=== PATIENT | female | born 1970 | race Caucasian/White ===

== ENCOUNTER 2017-03-23 02:44 | Emergency (ER) | payer SELFPAY ==
[2017-03-23 03:12] VITALS: TEMP 98.2
[2017-03-23] MEDS ORDERED: PROMETHAZINE HCL INJ 25 MG/ML VIAL ONE (03:23)
[2017-03-23] MEDS ORDERED: SODIUM CHLORIDE 0.9% 50ML 50 ML ONE (03:23)
[2017-03-23] MEDS: PROMETHAZINE HCL INJ 25 MG in SODIUM CHLORIDE 0.9% 50ML 50 ML IVPB ONE (03:26)
[2017-03-23] MEDS: SODIUM CHLORIDE 0.9% 1000ML 1,000 ML IVS ONE (03:26)
[2017-03-23] MEDS: MECLIZINE HCL 12.5 MG TAB PO ONE (03:26)
[2017-03-23 04:56] VITALS: O2SAT 98
--- NOTE | 2017-03-23 04:56 | ED.PDOC ---
History of Present Illness - General Chief Complaint: GI Problem Stated Complaint: dizziness, nausea Time Seen by Provider: 03/23/17 02:46 Source: patient Exam Limitations: no limitations - History of Present Illness Initial Comments: the patient is a 46-year-old female presenting to the emergency room secondary to 3 days of intermittent vertigo with dizziness and associated nausea and vomiting. No fever. No blood in the vomitus. No diarrhea. No syncope or near syncope. She does believe that it is worse when she looks up or looks to the right. She has had multiple episodes like this in the past and did have a negative head CT in 2015. Timing/Duration: unsure Severity: moderate Improving Factors: nothing Worsening Factors: nothing Associated Symptoms: denies symptoms Allergies/Adverse Reactions: Allergies NO KNOWN ALLERGY Allergy (Verified 03/23/17 03:05) Home Medications: Ambulatory Orders Carbamazepine [Tegretol] 200 mg PO 03/23/17 Levothyroxine Sodium [Synthroid] 25 mcg PO 03/23/17 Meclizine HCl 25 mg PO Q6H PRN #20 tab 03/23/17 Promethazine HCl 25 mg PO Q6H PRN #10 tab 03/23/17 Review of Systems - Review of Systems Constitutional: States: malaise EENTM: States: no symptoms reported Respiratory: States: no symptoms reported Cardiology: States: no symptoms reported Gastrointestinal/Abdominal: States: see HPI Genitourinary: States: no symptoms reported Musculoskeletal: States: no symptoms reported Skin: States: no symptoms reported Neurological: States: anxiety Endocrine: States: no symptoms reported All other Systems: No Change from Baseline Past Medical History (General) - Patient Medical History Hx Seizures: No Hx Stroke: No Hx Dementia: No Hx Asthma: Yes Hx of COPD: No Hx Cardiac Disorders: No Hx Congestive Heart Failure: Yes Hx Pacemaker: No Hx Hypertension: No Hx Thyroid Disease: No Hx Diabetes: No Hx Gastroesophageal Reflux: Yes Hx Renal Disease: No Hx of HIV: No Hx MRSA: No Surgical History: no surgical history - Vaccination History Hx Tetanus, Diphtheria Vaccination: No Hx Influenza Vaccination: No Hx Pneumococcal Vaccination: No Immunizations Up to Date: No - Social History Hx Tobacco Use: No Hx Chewing Tobacco Use: No Hx Alcohol Use: Yes - occ Hx Substance Use: No Hx Substance Use Treatment: No Hx Depression: Yes Hx Physical Abuse: No Hx Emotional Abuse: No Hx Suspected Abuse: No - Female History Patient : No Family Medical History - Family History Maternal Family History: No Known Living Status: Unknown Hx Family Hypertension: Yes Hx Cardiac Disease: Yes Hx Family Diabetes: Yes Physical Exam - Physical Exam General Appearance: Alert, Anxious Eye Exam: bilateral normal Ears, Nose, Throat: hearing grossly normal, normal pharynx Neck: non-tender, full range of motion Respiratory: chest non-tender, lungs clear, normal breath sounds, no respiratory distress Cardiovascular/Chest: regular rate, rhythm, no edema Peripheral Pulses: radial,right: 2+, radial,left: 2+, dorsalis pedis,right: 2+, dorsalis pedis,left: 2+ Gastrointestinal/Abdominal: non tender, soft Rectal Exam: deferred Neurologic: no motor/sensory deficits, alert, oriented x 3 Skin Exam: normal color Comments: Vital Signs - 24 hr 03/23/17 03:08 Temperature 98.2 F Pulse Rate [ 69 left] Respiratory 18 Rate Blood Pressure 116/74 [left] O2 Sat by Pulse 97 Oximetry no abnormal nystagmus detected. No vertical skew deviation. His impulse test indicates slight deficit when rapid turn to the right. Progress - Progress Progress: 03/23/17 04:56 the patient's a 46-year-old female presenting with what appears to be an acute vestibular syndrome. The patient will be written for meclizine and Phenergan for as needed use. She needs to keep herself well-hydrated. She needs to follow-up with her primary care doctor early this week. ER warnings were given for any worsening. - EKG/XRAY/CT CT Ordered: No Departure - Departure Clinical Impression: Vestibular disorder Qualifiers: Laterality: right Qualified Code(s): H81.91 - Unspecified disorder of vestibular function, right ear Disposition: Discharge to Home or Self Care Condition: Fair Departure Forms: ED Discharge - Pt. Copy, Patient Portal Self Enrollment Instructions: DI for Vertigo Diet: bland diet Activity: increase activity as tolerated Prescriptions: Meclizine HCl 25 mg PO Q6H PRN #20 tab PRN Reason: Dizziness Promethazine HCl 25 mg PO Q6H PRN #10 tab PRN Reason: Vomiting Home Medications: Ambulatory Orders Carbamazepine [Tegretol] 200 mg PO 03/23/17 Levothyroxine Sodium [Synthroid] 25 mcg PO 03/23/17 Meclizine HCl 25 mg PO Q6H PRN #20 tab 03/23/17 Promethazine HCl 25 mg PO Q6H PRN #10 tab 03/23/17 Additional Instructions: the patient's a 46-year-old female presenting with what appears to be an acute vestibular syndrome. The patient will be written for meclizine and Phenergan for as needed use. She needs to keep herself well-hydrated. She needs to follow-up with her primary care doctor early this week. ER warnings were given for any worsening.
[2017-03-23 05:12] VITALS: BP 155/89
== END 2017-03-23 05:07 | disposition home or self-care (01) ==
LOC: ER 02:44
DX: H81.91 Unspecified disorder of vestibular function, right ear (principal); I50.9 Heart failure, unspecified; K21.9 Gastro-esophageal reflux disease without esophagitis; J45.909 Unspecified asthma, uncomplicated; Z79.899 Other long term (current) drug therapy
CPT/HCPCS: A4216; J2550; J7030

== ENCOUNTER → 2017-07-23 | Outpatient (CLI) | payer OTHER ==
--- NOTE | 2017-07-23 12:47 | MAM ---
EXAM DESCRIPTION: 3D Diagnostic, Bilateral: Digital Mammography CLINICAL HISTORY: 46 yearsFemaleBREAST LUMP . Lumps on the medial and lateral right breast. No family history of breast cancer. Premenopausal. COMPARISON: Baseline study at this facility.. No prior reports available. TECHNIQUE: Bilateral CC LM MLO projection full-field images, 3-D tomosynthesis digital mammographic technique. Also bilateral synthesized CC MLO LM full-field images. CAD not utilized. FINDINGS: The breast parenchymal density pattern is: Heterogeneously dense breast tissue, which may obscure small masses. No skin thickening or nipple retraction . Bilateral intramammary lymph nodes. Bilateral solitary microcalcifications. Skin marker at the 400 clock position of the anterior third of the right breast where mass is palpable. Bilateral intramammary lymph nodes. Focal asymmetry in the upper inner quadrant of the middle third of the left breast at the 300 clock position approximately 7 cm from the nipple. Same density as surrounding tissues with no associated calcifications. Focal asymmetry in the middle third of the left breast approximately 7 cm from the nipple at the 1100 clock position. Same density as surrounding fibroglandular tissues. No associated microcalcifications. ULTRASOUND: Scanning at the 400 clock position of the right breast from the nipple posterior 4 cm showing heterogeneous fibroglandular and fatty tissues. At the 300 clock position 6 cm from the nipple, heterogeneous hypoechoic mass with partially circumscribed margins and partially indistinct margins was visualized. 11 x 8 x 7 mm and parallel orientation. Mixed posterior features. Nonvascular. No discrete cyst, large calcification, or parenchymal edema. No overlying skin changes. Scanning left breast 1100 clock position 6 cm from the nipple shows a well-defined hypoechoic mass with echogenic vascular Center and well-circumscribed margins. Parallel orientation and mixed posterior features. 7 x 9 mm. No discrete cyst, parenchymal edema, or large calcifications. No overlying skin changes. IMPRESSION: BI-RADS CATEGORY 4: SUSPICIOUS. SUB-CATEGORY 4A - LOW SUSPICION FOR MALIGNANCY. Surgical consultation and tissue diagnosis should be considered for the right breast.. The FINDINGS and follow-up plan were reviewed in person with the patient following the examination. Written communication explaining the IMPRESSION and follow-up will be mailed to the patient and referring care provider. Electronically signed by: Louie Joseph MD 07/23/2017 12:46 PM [employer]AT AND SEAFOOD MANAGER
--- NOTE | 2017-07-23 12:48 | US ---
EXAM DESCRIPTION: Breast,Bilateral: Ultrasound CLINICAL HISTORY: 46 yearsFemaleBREAST LUMP COMPARISON: Digital 3-D diagnostic tomosynthesis bilateral breast this visit. TECHNIQUE: Transcutaneous scanning of the bilateral breast utilizing two-dimensional and Doppler modes. Scanning performed by the aircraft charter dispatcher and Dr. Joseph. FINDINGS: Scanning at the 400 clock position of the right breast from the nipple posterior 4 cm showing heterogeneous fibroglandular and fatty tissues. At the 300 clock position 6 cm from the nipple, heterogeneous hypoechoic mass with partially circumscribed margins and partially indistinct margins was visualized. 11 x 8 x 7 mm and parallel orientation. Mixed posterior features. Nonvascular. No discrete cyst, large calcification, or parenchymal edema. No overlying skin changes. Scanning left breast 1100 clock position 6 cm from the nipple shows a well-defined hypoechoic mass with echogenic vascular center and well-circumscribed margins. Parallel orientation and mixed posterior features. 7 x 9 mm. No discrete cyst, parenchymal edema, or large calcifications. No overlying skin changes. IMPRESSION: BI-RADS CATEGORY 4: SUSPICIOUS. SUB-CATEGORY 4A - LOW SUSPICION FOR MALIGNANCY (RIGHT BREAST). Please refer to bilateral 3-D tomosynthesis diagnostic mammographic examination and report today. The FINDINGS and the follow-up plan were reviewed in person with the patient after the examination. Written communication explaining the IMPRESSION and follow-up will be mailed to the patient and referring care provider. Electronically signed by: Louie Joseph MD 07/23/2017 12:46 PM [facility]
== END ==
LOC: MAMMO 11:27
PROVIDERS: ATTEND Family Medicine
DX: N63.0 Unspecified lump in unspecified breast (principal)
CPT/HCPCS: 76641; G0204; G0279

== ENCOUNTER → 2017-08-05 | Outpatient (CLI) | payer OTHER ==
--- NOTE | 2017-08-05 15:56 | OP ---
DATE OF PROCEDURE: 08/05/17 PREOPERATIVE DIAGNOSIS: 1. Abnormal right mammogram. POSTOPERATIVE DIAGNOSIS: 1. Abnormal right mammogram. SURGICAL PROCEDURE: 1. Sonographic guided needle core biopsy right breast lesion. SURGEON: Asad Wright M.D. SASH CLAMP OPERATOR: None. ANESTHESIA: Local infiltration of 1% Lidocaine. INDICATION FOR SURGERY: The patient is a 46 year-old female who complained of a lumpy breast for some time. On ultrasound, she had approximately an 11 mm lesion at the 3 o'clock position of the right breast. She was brought to the Ultrasound Suite today for excision of same. FINDINGS AT TIME OF PROCEDURE: The needle appears to be in the area of concern. Six cores were taken. The patient tolerated the procedure well. The incision was closed with a single #4-0 nylon simple suture. Sterile pressure dressing was applied. Estimated blood loss was less than 5 mL. The patient will followup in 1 weeks. The pathology was sent for normal pathologic evaluation. #[id number] and [id number] [facility]
--- NOTE | 2017-08-06 10:18 | US ---
EXAM DESCRIPTION: Biopsy/Needle Guidance CLINICAL HISTORY: 46 years Female N63.10 COMPARISON: Diagnostic ultrasound of the right breast on 07/23/2017. TECHNIQUE: The procedure was performed by Dr. Wright. Repeat ultrasound localized the lesion at the 300 clock position of the right breast. 3 cm from the nipple. Sterile preparation. Sterile ultrasound guidance. FINDINGS: Hypoechoic oval lesion with partially well-circumscribed borders is again noted at the 300 clock position of the right breast 3 cm from the nipple. Dimensions are 11 x 8 x 6 mm. Multiple images show the echogenic sampling needle within the lesion. IMPRESSION: Successful, ultrasound-guided fine-needle core biopsy of right breast mass. Pathology examination at remote facility, results pending. Electronically signed by: Louie Joseph MD 08/06/2017 10:17 AM [facility]
== END | disposition home or self-care (01) ==
LOC: US 14:12
PROVIDERS: ATTEND Surgery
PROC: 0HBT3ZX Excision of Right Breast, Percutaneous Approach, Diagnostic (ICD-10-PCS; principal; 2017-08-05)
DX: R92.8 Other abnormal and inconclusive findings on diagnostic imaging of breast (principal)

== ENCOUNTER → 2017-12-08 | Outpatient (CLI) | payer OTHER ==
--- NOTE | 2017-12-10 15:05 | US ---
EXAM DESCRIPTION: Breast,Right: Ultrasound CLINICAL HISTORY: 47 yearsFemale6 M FU FOR NEG BX COMPARISON: Digital 3-D tomosynthesis diagnostic right breast on the same visit. Ultrasound-guided right breast biopsy 08/05/2017. TECHNIQUE: Transcutaneous scanning of the right breast utilizing two-dimensional and Doppler modes. Scanning performed by the bush and vine farmer fruit crops and Dr. Joseph. FINDINGS: Scanning at the 300 clock position of the right breast 3 cm from the nipple to the nipple. Again noted is a hypoechoic mass with somewhat lobulated borders parallel orientation and mixed posterior acoustic features but predominantly acoustic enhancement. Nonvascular. No discrete solid masses or cysts. No parenchymal edema or calcifications. No overlying skin changes. No abnormal soft tissue vascularity. IMPRESSION: 1. Bi-Rads Category 3: Probably Benign Findings. 2. Please refer to right breast 3-D tomosynthesis diagnostic mammographic examination and report on this visit. The FINDINGS and the FOLLOW-UP plan were reviewed in person with the patient after the examination. Written communication explaining the IMPRESSION and FOLLOW-UP will be mailed to the patient and referring care provider. Electronically signed by: Louie Joseph MD 12/10/2017 3:04 PM CDT
--- NOTE | 2017-12-11 14:18 | MAM ---
EXAM DESCRIPTION: 3D Diagnostic, Right: Digital Mammography CLINICAL HISTORY: 47 yearsFemaleFOLLOW UP POST NEG BX . Negative ultrasound-guided breast biopsy 08/05/2017.. COMPARISON: Targeted right breast ultrasound following this examination.. 3-D diagnostic bilateral tomosynthesis mammography 07/23/2017. Reports from prior examinations also reviewed. TECHNIQUE: Right CC LM MLO projection full-field images, 3-D tomosynthesis digital mammographic technique. Also bilateral synthesized CC MLO LM full-field images. CAD not utilized. FINDINGS: The breast parenchymal density pattern is: Heterogeneously dense breast tissue, which may obscure small masses. No skin thickening or nipple retraction posterior intramammary lymph nodes. In the region of the prior biopsy lateral anterior right breast, no focal, stellate mass or density, focal asymmetry , and no suspicious microcalcifications right breast. ULTRASOUND: Scanning at the 300 clock position of the right breast 3 cm from the nipple to the nipple. Again noted is a hypoechoic mass with somewhat lobulated borders parallel orientation and mixed posterior acoustic features but predominantly acoustic enhancement. Nonvascular. No discrete solid masses or cysts. No parenchymal edema or calcifications. No overlying skin changes. No abnormal soft tissue vascularity. IMPRESSION: BI-RADS CATEGORY: 3 - PROBABLY BENIGN. Management: Short interval (6-month) follow-up digital mammography and ultrasound July 2018. The FINDINGS and the FOLLOW-UP plan were reviewed in person with the patient after the examination. Written communication explaining the IMPRESSION and FOLLOW-UP will be mailed to the patient and referring care provider. Electronically signed by: Louie Joseph MD 12/11/2017 2:17 PM CDT
== END ==
LOC: US 13:30
PROVIDERS: ATTEND Family Medicine
DX: N63.0 Unspecified lump in unspecified breast (principal)
CPT/HCPCS: 76641; 77065; G0279

== ENCOUNTER 2018-06-01 22:27 | Emergency (ER) | payer SELFPAY ==
[2018-06-01] MEDS ORDERED: FLUCONAZOLE 100 MG TAB PO ONE (23:49)
[2018-06-01] MEDS ORDERED: CIPROFLOXACIN 500 MG TAB PO ONE (23:49)
--- NOTE | 2018-06-02 00:13 | ED.PDOC ---
History of Present Illness - General Chief Complaint: Problem Stated Complaint: urinary pressure,burning Time Seen by Provider: 06/01/18 22:33 Source: patient Exam Limitations: no limitations - History of Present Illness Initial Comments: The patient is a 47-year-old female presenting to the emergency room secondary to lower pelvic cramping intermittently over the last week. It does seem to improve with voiding but there is some cramping after voiding. Minimal vaginal discharge. No fever. She has been having some constipation problems. She has had significant urinary tract infections in the past. She has taken very short courses of Bactrim and amoxicillin that she had left over over the last week to try and treat a suspected UTI. Timing/Duration: 1 week Severity: moderate Improving Factors: nothing Worsening Factors: nothing Associated Symptoms: loss of appetite, malaise Allergies/Adverse Reactions: Allergies NO KNOWN ALLERGY Allergy (Verified 03/23/17 03:05) Home Medications: Ambulatory Orders Ciprofloxacin [Cipro] 500 mg PO BID #14 tab 06/02/18 Review of Systems - Review of Systems Constitutional: States: no symptoms reported EENTM: States: no symptoms reported Respiratory: States: no symptoms reported Cardiology: States: no symptoms reported Gastrointestinal/Abdominal: States: abdominal pain Genitourinary: States: dysuria, frequency, pain Musculoskeletal: States: no symptoms reported Skin: States: no symptoms reported Neurological: States: no symptoms reported Endocrine: States: no symptoms reported All other Systems: No Change from Baseline Past Medical History (General) - Patient Medical History Hx Seizures: No Hx Stroke: No Hx Dementia: No Hx Asthma: No Hx of COPD: No Hx Cardiac Disorders: No Hx Congestive Heart Failure: No Hx Pacemaker: No Hx Hypertension: No Hx Thyroid Disease: No Hx Diabetes: No Hx Gastroesophageal Reflux: Yes Hx Renal Disease: No Hx of HIV: No Hx MRSA: No - Vaccination History Hx Tetanus, Diphtheria Vaccination: No Hx Influenza Vaccination: No Hx Pneumococcal Vaccination: No - Social History Hx Tobacco Use: No Hx Chewing Tobacco Use: No Hx Alcohol Use: Yes - occ Hx Substance Use: No Hx Substance Use Treatment: No Hx Depression: Yes Hx Physical Abuse: No Hx Emotional Abuse: No Hx Suspected Abuse: No - Female History Patient : No Family Medical History - Family History Maternal Family History: No Known Living Status: Unknown Hx Family Hypertension: Yes Hx Cardiac Disease: Yes Hx Family Diabetes: Yes Physical Exam - Physical Exam General Appearance: Alert, Comfortable, No apparent distress Eye Exam: bilateral normal Ears, Nose, Throat: hearing grossly normal Neck: non-tender, supple Respiratory: no respiratory distress, no accessory muscle use Cardiovascular/Chest: normal peripheral pulses, regular rate, rhythm, no edema Peripheral Pulses: radial,right: 2+, radial,left: 2+ Gastrointestinal/Abdominal: soft, other - mild suprapubic discomfort palpation Rectal Exam: deferred Back Exam: no CVA tenderness Extremity: normal range of motion, non-tender, normal inspection, no pedal edema , normal capillary refill Neurologic: die grinder II-XII nml as tested, alert, normal mood/affect, oriented x 3 Skin Exam: normal color Comments: Vital Signs - 24 hr 06/01/18 22:47 Temperature 99.0 F Pulse Rate [ 78 Right] Respiratory 20 Rate Blood Pressure 133/81 [Left Arm] O2 Sat by Pulse 98 Oximetry Progress - Progress Progress: 06/02/18 00:13 the patient is a 47-year-old female presenting to the emergency room with symptoms consistent with cystitis. Urinary symptoms are consistent with a mild partially treated cystitis. Patient is going to be placed on ciprofloxacin 500 mg twice daily for the next 7 days. She needs to increase her fluid intake. She did receive 1 dose of oral Diflucan here [facility]. She is to follow up with her primary care doctor for a test of cure in one week. ER warnings were given. She does need to increase her fluid intake. Additionally she can take [id number] MiraLAX 2-3 times a week to help reduce issues from constipation. - Results/Orders Results/Orders: Laboratory Tests 06/01/18 22:51 Urine Color Yellow Urine Appearance Clear Urine pH 5.5 Ur Specific [place] >= 1.030 Urine Protein Negative Urine Glucose (UA) Negative Urine Ketones Negative Urine Blood Negative Urine Nitrite Positive H Urine Bilirubin Negative Urine Urobilinogen 0.2 Ur Leukocyte Esterase Trace H Urine RBC 1-3 Urine WBC 5-10 H Ur Epithelial Cells 3-5 Urine Bacteria 1+ Departure - Departure Clinical Impression: Urinary tract infection Qualifiers: Urinary tract infection type: acute cystitis Hematuria presence: without hematuria Qualified Code(s): N30.00 - Acute cystitis without hematuria Disposition: Discharge to Home or Self Care Condition: Fair Departure Forms: ED Discharge - Pt. Copy, Patient Portal Self Enrollment Instructions: DI for Urinary Tract Infection (UTI) Diet: regular diet Activity: increase activity as tolerated Prescriptions: Ciprofloxacin [Cipro] 500 mg PO BID #14 tab Home Medications: Ambulatory Orders Ciprofloxacin [Cipro] 500 mg PO BID #14 tab 06/02/18 Additional Instructions: the patient is a 47-year-old female presenting to the emergency room with symptoms consistent with cystitis. Urinary symptoms are consistent with a mild partially treated cystitis. Patient is going to be placed on ciprofloxacin 500 mg twice daily for the next 7 days. She needs to increase her fluid intake. She did receive 1 dose of oral Diflucan here [facility]. She is to follow up with her primary care doctor for a test of cure in one week. ER warnings were given. She does need to increase her fluid intake. Additionally she can take [id number] MiraLAX 2-3 times a week to help reduce issues from constipation.
[2018-06-02 00:32] VITALS: BP 128/80; TEMP 98.6; O2SAT 99
== END 2018-06-02 00:32 | disposition home or self-care (01) ==
LOC: ER 22:27
DX: N30.00 Acute cystitis without hematuria (principal); K21.9 Gastro-esophageal reflux disease without esophagitis; F32.9 Major depressive disorder, single episode, unspecified

== ENCOUNTER → 2018-10-21 | Outpatient (CLI) | payer OTHER | LOC: LAB.O 12:55 | PROVIDERS: ATTEND Nurse Practitioner Family | DX: I10 Essential (primary) hypertension (principal); E78.2 Mixed hyperlipidemia; E03.9 Hypothyroidism, unspecified; E66.01 Morbid (severe) obesity due to excess calories ==